=== PATIENT | male | born 1965 | race African-American/Black ===

== ENCOUNTER 2018-08-13 13:28 | Observation (INO) ==
[2018-08-13] MEDS ORDERED: Acetaminophen 325 MG Tablet PO ONE (14:07)
--- NOTE | 2018-08-13 14:24 | ED ---
HPI General Chief complaint: Seizure Stated complaint: seizure Time Seen by Provider: 08/13/18 13:56 Source: patient, family and RN notes reviewed Limitations: no limitations History of Present Illness HPI narrative: 53-year-old male presents to the emergency department with his sister at bedside for evaluation of seizures. He apparently just got discharged recently from rehab for CHF where he was receiving and underdosing of his Keppra. He is currently on Keppra 2000 mg twice daily, phenobarbital, Vimpat for his seizures. She states he has been having constant seizures for the past week. During my exam, the patient started shaking, but was alert and answers all my questions appropriately during this episode. Patient was found to have a fever in triage of 101.2. He denies any headache. No cough, congestion. He denies any abdominal pain. He reports vomiting yesterday. According to chart, patient has past medical history of seizure disorder, hypertension, CVA, NV, CHF, chronic idiopathic thrombocytopenic purpura, history of DVT. He has history of right frontal AVM and bur hole placement. He also has a history of [place] filter placement. 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 Patient is on Coumadin. Moderate severity. Onset (ago): week(s) Severity: moderate Relieving factors: none Exacerbating factors: none Associated symptoms: Reports fever/chills and nausea/vomiting Related Data Home Medications Medication Instructions Recorded Confirmed atorvastatin 10 mg PO DAILY 08/13/18 08/13/18 furosemide 40 mg PO DAILY 08/13/18 08/13/18 labetalol 200 mg PO BID 08/13/18 08/13/18 lacosamide [Vimpat] 50 mg PO BID 08/13/18 08/13/18 levetiracetam [Keppra] 2,000 mg PO BID 08/13/18 08/13/18 phenobarbital 64.8 mg PO BID 08/13/18 08/13/18 potassium chloride 08/13/18 warfarin 5 mg PO DAILY 08/13/18 08/13/18 Allergies Allergy/AdvReac Type Severity Reaction Status Date / Time monosodium glutamate Allergy Intermediate SEIZURE Unverified 05/18/17 20:42 divalproex sodium AdvReac Severe NAUSEA AND Unverified 05/18/17 20:42 VOMITING enoxaparin AdvReac Severe LOWERS WBC Unverified 05/18/17 20:42 SOUNT heparin (porcine) AdvReac Severe LOWERS WBC Unverified 05/18/17 20:42 [place] Allergy Severe STOPS Uncoded 10/31/10 22:24 BREATHING Review of Systems ROS: all other systems reviewed are negative [facility] Medical History Medical History Myocardial infarction (Acute) Seizure (Acute) Stroke (Acute) Social History Social History Substance History: No History of Abuse Second Hand Smoke Exposure: No Smoking Status: Never smoker How Often Do You Have a Drink Containing Alcohol: Never Recent Travel in [facility] within the Last 8 Weeks: No Recent Out of Country Travel within the Last 8 Weeks: No Exam Narrative Exam Narrative: GENERAL: Well-nourished, well-developed male patient, temp of 101.2 SKIN: Focused skin assessment warm/dry. HEAD: Normocephalic. Atraumatic ENT: Mucosa pink and moist. No erythema or exudates. No uvular edema. No uvular , palatal, or tonsillar deviation. Airway patent. Nasal turbinates appear normal without nasal blood, purulent drainage or septal hematoma. Bilateral tympanic membranes clear without erythema or perforation. EYES: No scleral icterus. No injection or drainage. NECK: Supple, trachea midline. No JVD or lymphadenopathy. CARDIOVASCULAR: Regular rate and rhythm without murmurs, gallops, or rubs. RESPIRATORY: Breath sounds equal bilaterally. No accessory muscle use. GASTROINTESTINAL: Abdomen soft, non-tender, nondistended. MUSCULOSKELETAL: No cyanosis, or edema. Patient has chronic left-sided deficit from previous CVA BACK: Nontender without obvious deformity. No CVA tenderness. Course Initial Documented Vital Signs Temperature 101.2 F H 08/13/18 13:31 Pulse Rate 82 08/13/18 13:31 Respiratory Rate 16 08/13/18 13:31 Blood Pressure 196/111 H 08/13/18 13:31 Pulse Oximetry 100 08/13/18 13:31 Last Documented Vital Signs Temperature 101.2 F H 08/13/18 13:31 Pulse Rate 82 08/13/18 15:45 Respiratory Rate 18 08/13/18 15:45 Blood Pressure 165/82 H 08/13/18 15:45 Pulse Oximetry 100 08/13/18 15:45 Medical Decision Making [facility] Narrative Medical decision making narrative: 53-year-old male presents to the emergency department for evaluation of seizures with history of. He is found to have fever of 1 1.2 in triage. Septic workup is initiated. During my exam, he did start sticking and telling me he was having a seizure, but answered all my questions appropriately throughout this episode. IV access obtained. EKG, CBC , CMP, lipase, BNP, CK, troponin, magnesium, lactic acid, blood cultures x2, UA , PTT, PT/INR, chest x-ray are ordered and pending. IV fluids will be held at this time due to significant CHF history. CBC shows platelets at 63. CMP shows no acute abnormality. Lipase is 57. BNP is 178. CK is 110. Troponin is 0.03. Magnesium is 2.0. Lactic acid is 1.2. PTT is 30.3. PT/INR is 12.1/1.2. UA is negative for acute infection. Chest x- ray shows no acute cardiopulmonary disease. CT of the brain shows Right frontal and parietal lobe chronic encephalomalacia. Scattered parenchymal calcifications medially of the frontal lobe and with a focal change in the interim. By report, patient has history of a previously treated AVM. Evolving posttreatment changes and a localized AVM recurrence are in the differential. If there are no contraindications, MRA without contrast and MRI of the brain with and without contrast are recommended; I don't see any other changes or acute abnormalities. No bleed. Patient will be admitted for further evaluation. Patient was given Ativan 0.5 mg IV and has been resting since. Medical Screen Exam Complete: Yes Emergency Medical Condition: Yes Differential Diagnosis Differential Diagnosis: Pneumonia versus UTI versus sepsis versus pseudoseizure versus status epilepticus Medical Records Medical records reviewed: Yes I reviewed the patient's medical records. Lab Data Result diagrams: 08/13/18 14:20 08/13/18 14:20 Lab Results 08/13/18 08/13/18 08/13/18 Range/Units 14:20 14:20 14:20 WBC 7.5 (4.0-11.0) th/mm3 RBC 3.58 L (4.50-5.90) mil/mm3 Hgb 11.6 L (13.0-17.0) gm/dL Hct 35.1 L (39.0-51.0) % MCV 97.9 (80.0-100.0) fL MCH 32.5 (27.0-34.0) pg MCHC 33.2 (32.0-36.0) % RDW 16.1 (11.6-17.2) % Plt Count 63 L (150-450) th/mm3 MPV 12.2 H (7.0-11.0) fL Prelim Diff (Auto) Slide review pending Neut % (Auto) 73.9 H (16.0-70.0) % Lymph % (Auto) 12.3 (9.0-44.0) % Anderson % (Auto) 11.9 H (0.0-8.0) % Eos % (Auto) 1.3 (0.0-4.0) % Baso % (Auto) 0.6 (0.0-2.0) % Neut # (Auto) 5.5 (1.8-7.7) th/mm3 Lymph # (Auto) 0.9 L (1.0-4.8) th/mm3 Anderson # (Auto) 0.9 (0.0-0.9) th/mm3 Eos # (Auto) 0.1 (0.0-0.4) th/mm3 Baso # (Auto) 0.0 (0.0-0.2) th/mm3 WBC Differential . Diff Scan Auto diff confirmed Differential Comment . Platelet Estimate Low L (Normal) Platelet Morphology Enlarged H (Normal) Ovalocytes 2+ H (None) PT (9.8-11.6) sec INR Ratio APTT (23.4-31.7) sec Sodium 139 (136-145) meq/L Potassium 3.6 (3.5-5.1) meq/L Chloride 100 (98-107) meq/L Carbon Dioxide 29.6 (21.0-32.0) meq/L Anion Gap 9 (5-15) meq/L BUN 14 (7-18) mg/dL Creatinine 1.29 (0.60-1.30) mg/dL Estimated GFR 70 L (>89) mL/min Random Glucose 89 (74-106) mg/dL Lactic Acid 1.2 (0.4-2.0) mmol/L Calcium 8.4 L (8.5-10.1) mg/dL Magnesium 2.0 (1.5-2.5) mg/dL Total Bilirubin 0.7 (0.2-1.0) mg/dL AST 12 L (15-37) U/L ALT 20 (12-78) U/L Alkaline Phosphatase 92 (45-117) U/L Total Creatine Kinase (39-308) U/L CK-MB (CK-2) (0.5-3.6) ng/mL Troponin I (0.02-0.05) ng/mL B-Natriuretic Peptide (0-100) pg/mL Total Protein 8.2 (6.4-8.2) g/dL Albumin 3.4 (3.4-5.0) g/dL Lipase (73-393) U/L Urine Color (Yellw/Straw) Urine Clarity (Clear) Urine pH (5.0-8.5) Ur Specific [place] (1.002-1.035) Urine Protein (Neg-Trace) mg/dL Urine Glucose (UA) (Negative) mg/dL Urine Ketones (Negative) mg/dL Urine Occult Blood (Negative) Urine Nitrate (Negative) Urine Bilirubin (Negative) Urine Urobilinogen (Less than 2) mg/dL Ur Leukocyte Esterase (Negative) Urine WBC (0-5) /hpf Ur Squamous Epith Cells (0-5) /hpf Urine Mucus (Occasional) /lpf Micro UA Comment Ur Microscopic Review Urine Culture Comments Phenobarbital (15.0-40.0) mcg/mL 08/13/18 08/13/18 08/13/18 Range/Units 14:20 14:20 14:20 WBC (4.0-11.0) th/mm3 RBC (4.50-5.90) mil/mm3 Hgb (13.0-17.0) gm/dL Hct (39.0-51.0) % MCV (80.0-100.0) fL MCH (27.0-34.0) pg MCHC (32.0-36.0) % RDW (11.6-17.2) % Plt Count (150-450) th/mm3 MPV (7.0-11.0) fL Prelim Diff (Auto) Neut % (Auto) (16.0-70.0) % Lymph % (Auto) (9.0-44.0) % Anderson % (Auto) (0.0-8.0) % Eos % (Auto) (0.0-4.0) % Baso % (Auto) (0.0-2.0) % Neut # (Auto) (1.8-7.7) th/mm3 Lymph # (Auto) (1.0-4.8) th/mm3 Anderson # (Auto) (0.0-0.9) th/mm3 Eos # (Auto) (0.0-0.4) th/mm3 Baso # (Auto) (0.0-0.2) th/mm3 WBC Differential Diff Scan Differential Comment Platelet Estimate (Normal) Platelet Morphology (Normal) Ovalocytes (None) PT 12.1 H (9.8-11.6) sec INR 1.2 Ratio APTT 30.3 (23.4-31.7) sec Sodium (136-145) meq/L Potassium (3.5-5.1) meq/L Chloride (98-107) meq/L Carbon Dioxide (21.0-32.0) meq/L Anion Gap (5-15) meq/L BUN (7-18) mg/dL Creatinine (0.60-1.30) mg/dL Estimated GFR (>89) mL/min Random Glucose (74-106) mg/dL Lactic Acid (0.4-2.0) mmol/L Calcium (8.5-10.1) mg/dL Magnesium (1.5-2.5) mg/dL Total Bilirubin (0.2-1.0) mg/dL AST (15-37) U/L ALT (12-78) U/L Alkaline Phosphatase (45-117) U/L Total Creatine Kinase 110 (39-308) U/L CK-MB (CK-2) Less than 1.0 (0.5-3.6) ng/mL Troponin I 0.03 (0.02-0.05) ng/mL B-Natriuretic Peptide (0-100) pg/mL Total Protein (6.4-8.2) g/dL Albumin (3.4-5.0) g/dL Lipase 57 L (73-393) U/L Urine Color (Yellw/Straw) Urine Clarity (Clear) Urine pH (5.0-8.5) Ur Specific [place] (1.002-1.035) Urine Protein (Neg-Trace) mg/dL Urine Glucose (UA) (Negative) mg/dL Urine Ketones (Negative) mg/dL Urine Occult Blood (Negative) Urine Nitrate (Negative) Urine Bilirubin (Negative) Urine Urobilinogen (Less than 2) mg/dL Ur Leukocyte Esterase (Negative) Urine WBC (0-5) /hpf Ur Squamous Epith Cells (0-5) /hpf Urine Mucus (Occasional) /lpf Micro UA Comment Ur Microscopic Review Urine Culture Comments Phenobarbital 27.3 (15.0-40.0) mcg/mL 08/13/18 08/13/18 Range/Units 14:20 15:50 WBC (4.0-11.0) th/mm3 RBC (4.50-5.90) mil/mm3 Hgb (13.0-17.0) gm/dL Hct (39.0-51.0) % MCV (80.0-100.0) fL MCH (27.0-34.0) pg MCHC (32.0-36.0) % RDW (11.6-17.2) % Plt Count (150-450) th/mm3 MPV (7.0-11.0) fL Prelim Diff (Auto) Neut % (Auto) (16.0-70.0) % Lymph % (Auto) (9.0-44.0) % Anderson % (Auto) (0.0-8.0) % Eos % (Auto) (0.0-4.0) % Baso % (Auto) (0.0-2.0) % Neut # (Auto) (1.8-7.7) th/mm3 Lymph # (Auto) (1.0-4.8) th/mm3 Anderson # (Auto) (0.0-0.9) th/mm3 Eos # (Auto) (0.0-0.4) th/mm3 Baso # (Auto) (0.0-0.2) th/mm3 WBC Differential Diff Scan Differential Comment Platelet Estimate (Normal) Platelet Morphology (Normal) Ovalocytes (None) PT (9.8-11.6) sec INR Ratio APTT (23.4-31.7) sec Sodium (136-145) meq/L Potassium (3.5-5.1) meq/L Chloride (98-107) meq/L Carbon Dioxide (21.0-32.0) meq/L Anion Gap (5-15) meq/L BUN (7-18) mg/dL Creatinine (0.60-1.30) mg/dL Estimated GFR (>89) mL/min Random Glucose (74-106) mg/dL Lactic Acid (0.4-2.0) mmol/L Calcium (8.5-10.1) mg/dL Magnesium (1.5-2.5) mg/dL Total Bilirubin (0.2-1.0) mg/dL AST (15-37) U/L ALT (12-78) U/L Alkaline Phosphatase (45-117) U/L Total Creatine Kinase (39-308) U/L CK-MB (CK-2) (0.5-3.6) ng/mL Troponin I (0.02-0.05) ng/mL B-Natriuretic Peptide 178 H (0-100) pg/mL Total Protein (6.4-8.2) g/dL Albumin (3.4-5.0) g/dL Lipase (73-393) U/L Urine Color Yellow (Yellw/Straw) Urine Clarity Clear (Clear) Urine pH 5.0 (5.0-8.5) Ur Specific [place] 1.023 (1.002-1.035) Urine Protein Negative (Neg-Trace) mg/dL Urine Glucose (UA) Negative (Negative) mg/dL Urine Ketones Negative (Negative) mg/dL Urine Occult Blood Negative (Negative) Urine Nitrate Negative (Negative) Urine Bilirubin Negative (Negative) Urine Urobilinogen 4 or greater (Less than 2) mg/dL Ur Leukocyte Esterase Negative (Negative) Urine WBC 1 (0-5) /hpf Ur Squamous Epith Cells <1 (0-5) /hpf Urine Mucus Few H (Occasional) /lpf Micro UA Comment Cath-culture not ind Ur Microscopic Review Not Reportable Urine Culture Comments Cath-cult not ind Phenobarbital (15.0-40.0) mcg/mL Imaging Data Radiologist's impression: Chest X-Ray 08/13/18 14:05 CONCLUSION: No acute cardiopulmonary disease demonstrated. Head CT 08/13/18 14:07 CONCLUSION: 1. Right frontal and parietal lobe chronic encephalomalacia. Scattered parenchymal calcifications medially of the frontal lobe and with a focal change in the interim. By report, patient has history of a previously treated AVM. Evolving posttreatment changes and a localized AVM recurrence are in the differential. If there are no contraindications, MRA without contrast and MRI of the brain with and without contrast are recommended. 2. I don't see any other changes or acute abnormalities. No bleed. . Discharge Plan Discharge Disposition Patient Disposition: 30 Still Patient Discharge Details Diagnosis: Epileptic seizure, Fever Physicians Team ED Provider: Desean García ED Midlevel Provider: Georgia Chacon Primary Care Provider: Jalen Arroyo V Rxs /Orders / Referrals /Forms Prescriptions: No Action furosemide 40 mg Tablet 40 mg PO DAILY RF: 0 potassium chloride 10 mEq Capsule, Extended Release RF: 0 labetalol 200 mg Tablet 200 mg PO BID RF: 0 atorvastatin 10 mg Tablet 10 mg PO DAILY RF: 0 warfarin 5 mg Tablet 5 mg PO DAILY RF: 0 phenobarbital 64.8 mg Tablet 64.8 mg PO BID RF: 0 levetiracetam [Keppra] 1,000 mg Tablet 2,000 mg PO BID RF: 0 lacosamide [Vimpat] 50 mg Tablet 50 mg PO BID RF: 0 Status ED Status: Admitted Observation Patient
[2018-08-13 15:16] LABS: Baso % (Auto) 0.6 % (0.0-2.0); Eos # (Auto) 0.1 th/mm3 (0.0-0.4); Eos % (Auto) 1.3 % (0.0-4.0); Hematocrit 35.1 % (39.0-51.0); Hemoglobin 11.6 gm/dL (13.0-17.0); Lymph # (Auto) 0.9 th/mm3 (1.0-4.8); Lymph % (Auto) 12.3 % (9.0-44.0); Mean Corpuscular HGB Conc 33.2 % (32.0-36.0); Mean Corpuscular Hemoglobin 32.5 pg (27.0-34.0); Mean Corpuscular Volume 97.9 fL (80.0-100.0); Mean Platelet Volume 12.2 fL (7.0-11.0); Mono # (Auto) 0.9 th/mm3 (0.0-0.9); Mono % (Auto) 11.9 % (0.0-8.0); Neut # (Auto) 5.5 th/mm3 (1.8-7.7); Neut % (Auto) 73.9 % (16.0-70.0); Platelet Count 63 th/mm3 (150-450); Red Blood Count 3.58 mil/mm3 (4.50-5.90); Red Cell Distribution Width 16.1 % (11.6-17.2); White Blood Count 7.5 th/mm3 (4.0-11.0)
[2018-08-13 15:25] LABS: Alanine Aminotransferase 20 U/L (12-78); Albumin 3.4 g/dL (3.4-5.0); Anion Gap 9 meq/L (5-15); Aspartate Aminotransferase 12 U/L (15-37); Blood Urea Nitrogen 14 mg/dL (7-18); Calcium 8.4 mg/dL (8.5-10.1); Carbon Dioxide 29.6 meq/L (21.0-32.0); Chloride 100 meq/L (98-107); Glomerular Filtration Rate 70 mL/min (>89); Glucose,Random 89 mg/dL (74-106); Potassium 3.6 meq/L (3.5-5.1); Sodium 139 meq/L (136-145)
[2018-08-13 15:26] LABS: Activated Partial Thrombo Time 30.3 sec (23.4-31.7); INR 1.2 Ratio; Prothrombin Time 12.1 sec (9.8-11.6)
[2018-08-13 15:27] LABS: Alkaline Phosphatase 92 U/L (45-117); Lipase 57 U/L (73-393); Total Protein 8.2 g/dL (6.4-8.2)
[2018-08-13 15:31] LABS: Creatine Kinase 110 U/L (39-308); Troponin I 0.03 ng/mL (0.02-0.05)
--- NOTE | 2018-08-13 15:48 | XR ---
EXAM DATE: 08/13/2018 3:03 PM EST AGE/SEX: 53 years / Male INDICATIONS: Seizures CLINICAL DATA: This is the patient's initial encounter. Patient reports that signs and symptoms have been present for 1 day and indicates a pain score of 0/10. MEDICAL/SURGICAL HISTORY: . Patient has focal seizures approximately every 15 minutes. None. COMPARISON: No prior exams available for comparison. FINDINGS: A single AP view of the chest demonstrates the lungs to be symmetrically aerated without evidence of mass, infiltrate or effusion. The cardiomediastinal contours are unremarkable. Osseous structures a re intact. CONCLUSION: No acute cardiopulmonary disease demonstrated. Electronically signed by: Bari Mendiola MD 08/13/2018 3:47 PM EST
[2018-08-13 15:52] LABS: Ovalocytes 2+
[2018-08-13 16:21] LABS: Bilirubin,Urine Negative (Negative); Clarity,Urine Clear (Clear); Color,Urine Yellow (Yellw/Straw); Glucose,Urine (UA) Negative (Negative); Leukocyte Esterase,Urine Negative (Negative); Mucus,Urine Few /lpf (Occasional); Nitrite,Urine Negative (Negative); Specific Gravity,Urine 1.023 (1.002-1.035); Squamous Epithelial Cell,Urine <1 /hpf (0-5); Urobilinogen,Urine 4 or Greater mg/dL (Less than 2)
--- NOTE | 2018-08-13 16:40 | ECG ---
Date Performed: 08/13/2018 Time Performed: 15:34:06 PTAGE: 53 years EKG: Sinus rhythm POSSIBLE LEFT ATRIAL ENLARGEMENT POSSIBLE RIGHT VENTRICULAR CONDUCTION DELAY LEFT ANTERIOR FASCICULA R BLOCK POSSIBLE LEFT VENTRICULAR HYPERTROPHY NONSPECIFIC T-WAVE ABNORMALITY ABNORMAL ECG No signific ant change from prior electrocardiogram. PREVIOUS TRACING : 11/01/2010 00.13 DOCTOR: Gavin Murillo Interpretating Date/Time 08/13/2018 16:38:46
--- NOTE | 2018-08-13 17:33 | CT ---
EXAM DATE: 08/13/2018 5:09 PM EST AGE/SEX: 53 years / Male INDICATIONS: Seizure. CLINICAL DATA: This is the patient's initial encounter. Patient reports that signs and symptoms have been present for 1 day and indicates a pain score of 0/10. MEDICAL/SURGICAL HISTORY: Cerebrovascular disease. Congestive heart failure. None. RADIATION DOSE: 55.01 CTDI (mGy) COMPARISON: [facility] [place], CT BRAIN W/O CONTRAST, 10/31/2010. . TECHNIQUE: CT of the head without contrast. Using automated exposure control and adjustment of the mA and/or kV according to patient size, radiation dose was kept as low as reasonably achievable to ob tain optimal diagnostic quality images. DICOM format image data is available electronically for revi ew and comparison. FINDINGS: Scattered parenchymal calcifications again noted in the right frontal lobe. There is a broad area of encephalomalacia involving the right frontal and parietal lobes. A 1.4 cm masslike calcification ante rior to the anterior horn of the right lateral ventricle is noted on series 2 image 14 and no other d efinite change. I don't see any midline shift. No intracranial hemorrhage or hematoma. No evidence of an acute ischemic event. CONCLUSION: 1. Right frontal and parietal lobe chronic encephalomalacia. Scattered parenchymal calcifications me dially of the frontal lobe and with a focal change in the interim. By report, patient has history of a previously treated AVM. Evolving posttreatment changes and a localized AVM recurrence are in the di fferential. If there are no contraindications, MRA without contrast and MRI of the brain with and wit hout contrast are recommended. 2. I don't see any other changes or acute abnormalities. No bleed. . Electronically signed by: Bari Mendiola MD 08/13/2018 5:32 PM EST
[2018-08-13] MEDS ORDERED: Bisacodyl 10 MG Supp RECTAL PRN (18:16)
[2018-08-13] MEDS ORDERED: Acetaminophen 325 MG Tablet PO PRN (18:16)
--- NOTE | 2018-08-13 18:22 | P.HPIM ---
History of Present Illness Primary Care Physician: Jalen Arroyo MD Chief Complaint: seizures History of Present Illness: This is 53-year-old male with h/o seizures presenting with recurrent seizures. Per patient's sister with some history from the patient himself, the patient was discharged from [facility] last Wednesday and upon arrivinghome started having seizures. He was in [facility] after being discharged from [facility] after admission for congestive heart failure. Per patient , he has had several episodes and has been having them daily for the past week. he denies any headache, neck stiffness, fever, chills, nausea, vomiting, shortness of breath, chest pain, urinary symptoms or diarrhea. After further investigation by the patient's sister, the rehab facility underdosed his Keppra. He is supposed to be in 4000 mg daily but they were only giving 500 mg 3 times a day. He is also on Vimpat and phenobarbital. While at the ED, it was noted that he had a fever of 101.2. He also started having seizures but during the episode, he was alert and able to answer some questions. Review of Systems All other pertinent systems were reviewed and are negative. [facility] - History History Provided By: Patient - Medical History Medical History: Medical History (Last Updated 08/13/18 @ 18:39 by Jamee Dawson MD) AVM (arteriovenous malformation) CHF (congestive heart failure) DVT (deep venous thrombosis) Torri filter in place Hypertension Myocardial infarction Seizure Stroke - Surgical History Surgical History: Surgical History (Last Updated 08/13/18 @ 18:39 by Jamee Dawson MD) History of troy hole surgery - Family History Family History: Family History (Last Updated 08/13/18 @ 18:39 by Jamee Dawson MD) Other Heart disease Hypertension - Tobacco History Second Hand Smoke Exposure: No Tobacco Use In Past 30 Days: No Smoking Status: Never smoker - Alcohol History How Often Do You Have a Drink Containing Alcohol: Never - Substance Use History Substance History: No History of Abuse - Travel History Recent Travel in the [facility] Within the Last 8 Weeks: No Recent Travel Out of the Country Within the Last 8 Weeks: No - Immunization History Tetanus Immunization: Unsure Medications and Allergies Active Medications: Active Medications Acetaminophen (Tylenol) 650 mg PO Q4H PRN PRN Reason: Temp > 100.4 Al Hydroxide/Mg Hydroxide (Milk Of Theresa Summers) 30 ml PO Q12H PRN PRN Reason: Mild Constipation Bisacodyl (Dulcolax Supp) 10 mg RECTAL DAILY PRN PRN Reason: SEVERE CONSITIPATION Enoxaparin Sodium (Lovenox Inj) 30 mg SQ Q24H CHAVO Ondansetron HCl (Zofran Inj) 4 mg IV.PUSH Q6H PRN PRN Reason: NAUSEA OR VOMITING Sennosides (Senokot) 17.2 mg PO Q12H PRN PRN Reason: Moderate Constipation Allergies Allergy/AdvReac Type Severity Reaction Status Date / Time monosodium glutamate Allergy Intermediate SEIZURE Unverified 05/18/17 20:42 divalproex sodium AdvReac Severe NAUSEA AND Unverified 05/18/17 20:42 VOMITING enoxaparin AdvReac Severe LOWERS WBC Unverified 05/18/17 20:42 SOUNT heparin (porcine) AdvReac Severe LOWERS WBC Unverified 05/18/17 20:42 SOUNT BEER Allergy Severe STOPS Uncoded 10/31/10 22:24 BREATHING Home Medications Medication Instructions Recorded Confirmed Type atorvastatin 10 mg PO DAILY 08/13/18 08/13/18 History furosemide 40 mg PO DAILY 08/13/18 08/13/18 History labetalol 200 mg PO BID 08/13/18 08/13/18 History lacosamide [Vimpat] 50 mg PO BID 08/13/18 08/13/18 History levetiracetam [Keppra] 2,000 mg PO BID 08/13/18 08/13/18 History phenobarbital 64.8 mg PO BID 08/13/18 08/13/18 History potassium chloride 08/13/18 History warfarin 5 mg PO DAILY 08/13/18 08/13/18 History Exam Vital signs: Vital Signs 08/13/18 13:31 08/13/18 14:47 08/13/18 14:50 Temperature 101.2 F H Pulse Rate 82 83 Respiratory Rate 16 18 Blood Pressure 196/111 H 213/84 H Pulse Oximetry 100 100 100 08/13/18 15:45 Temperature Pulse Rate 82 Respiratory Rate 18 Blood Pressure 165/82 H Pulse Oximetry 100 Intake & Output 08/12/18 08/13/18 08/13/18 18:59 06:59 18:59 Weight 72.575 kg Narrative: GENERAL: Not in acute distress, well-nourished. HEAD: Atraumatic. Normocephalic. EYES: PERRL, full EOMs, no jaundice, nonicteric, pink conjunctivae without injection, moist mucosa ENT: Nose without bleeding, purulent drainage. Airway patent. NECK: Trachea midline, no mass, no obvious thyromegaly. CARDIOVASCULAR: Regular rate and irregular rhythm without murmurs, gallops, or rubs. 3/6 systolic murmur. RESPIRATORY: Breath sounds equal, occasional crackles on the right base. GASTROINTESTINAL: Abdomen soft, normal bowel sounds, non-tender, nondistended. No hepato-splenomegaly or palpable mass. No guarding. LEON and exam deferred. MUSCULOSKELETAL: Extremities without clubbing, cyanosis, or edema. NEUROLOGICAL: Awake, alert, oriented 3. No obvious cranial nerve deficits. Left upper and lower extremities, 3-4/5, right upper and lower extremities 5/5. Fluent speech. Supple neck, negative Brudzinski, negative Kernig's. Results - Labs CBC & Chem 7: 08/13/18 14:20 08/13/18 14:20 Labs: Short CBC 08/13/18 Range/Units 14:20 WBC 7.5 (4.0-11.0) th/mm3 Hgb 11.6 L (13.0-17.0) gm/dL Hct 35.1 L (39.0-51.0) % Plt Count 63 L (150-450) th/mm3 BMP 08/13/18 14:20 Sodium 139 Potassium 3.6 Chloride 100 Carbon Dioxide 29.6 BUN 14 Creatinine 1.29 Calcium 8.4 L Cardiac Enzymes 08/13/18 Range/Units 14:20 Total Creatine Kinase 110 (39-308) U/L CK-MB (CK-2) Less than 1.0 (0.5-3.6) ng/mL Troponin I 0.03 (0.02-0.05) ng/mL Liver Function 08/13/18 Range/Units 14:20 Total Bilirubin 0.7 (0.2-1.0) mg/dL AST 12 L (15-37) U/L ALT 20 (12-78) U/L Alkaline Phosphatase 92 (45-117) U/L Albumin 3.4 (3.4-5.0) g/dL Urine 08/13/18 Range/Units 15:50 Urine Color Yellow (Yellw/Straw) Urine Clarity Clear (Clear) Urine pH 5.0 (5.0-8.5) Ur Specific [place] 1.023 (1.002-1.035) Urine Protein Negative (Neg-Trace) mg/dL Urine Glucose (UA) Negative (Negative) mg/dL - Imaging Impressions Chest X-Ray 08/13/18 14:05 CONCLUSION: No acute cardiopulmonary disease demonstrated. Head CT 08/13/18 14:07 CONCLUSION: 1. Right frontal and parietal lobe chronic encephalomalacia. Scattered parenchymal calcifications medially of the frontal lobe and with a focal change in the interim. By report, patient has history of a previously treated AVM. Evolving posttreatment changes and a localized AVM recurrence are in the differential. If there are no contraindications, MRA without contrast and MRI of the brain with and without contrast are recommended. 2. I don't see any other changes or acute abnormalities. No bleed. . Caprini VTE Risk Assessment Caprini VTE Risk Assessment: Moderate/High Risk (score >= 2) Caprini Risk Assessment Model: Point Value = 1 Point Value = 2 Point Value = 3 Point Value = 5 Age 41-60 Minor surgery BMI > 25 kg/m2 Swollen legs Varicose veins or History of unexplained or recurrent spontaneous Oral contraceptives or hormone replacement Sepsis (< 1 month) Serious lung disease, including pneumonia (< 1 month) Abnormal pulmonary function Acute myocardial infarction Congestive heart failure (< 1 month) History of inflammatory bowel disease Medical patient at bed rest Age 61-74 Arthroscopic surgery Major open surgery (> 45 min) Laparoscopic surgery (> 45 min) Malignancy Confined to bed (> 72 hours) Immobilizing plaster cast Central venous access Age >= 75 History of VTE Family history of VTE Factor V Leiden Prothrombin [id number] Lupus anticoagulant Anticardiolipin antibodies Elevated serum homocysteine Heparin-induced thrombocytopenia Other congenital or acquired thrombophilia Stroke (< 1 month) Elective arthroplasty Hip, pelvis, or leg fracture Acute spinal cord injury (< 1 month) Prophylaxis Regimen: Total Risk Factor Score Risk Level Prophylaxis Regimen 0-1 Low Early ambulation 2 Moderate Order ONE of the following: *Sequential Compression Device (SCD) *Heparin 5000 units SQ BID 3-4 Higher Order ONE of the following medications: *Heparin 5000 units SQ TID *Enoxaparin/Lovenox 40 mg SQ daily (WT < 150 kg, CrCl > 30 mL/min) *Enoxaparin/Lovenox 30 mg SQ daily (WT < 150 kg, CrCl > 10-29 mL/min) *Enoxaparin/Lovenox 30 mg SQ BID (WT < 150 kg, CrCl > 30 mL/min) AND/OR *Sequential Compression Device (SCD) 5 or more Highest Order ONE of the following medications: *Heparin 5000 units SQ TID (Preferred with Epidurals) *Enoxaparin/Lovenox 40 mg SQ daily (WT < 150 kg, CrCl > 30 mL/min) *Enoxaparin/Lovenox 30 mg SQ daily (WT < 150 kg, CrCl > 10-29 mL/min) *Enoxaparin/Lovenox 30 mg SQ BID (WT < 150 kg, CrCl > 30 mL/min) AND *Sequential Compression Device (SCD) Assessment and Plan - Plan This is a 53-year-old male with history of seizures, CHF, DVT, presenting to the emergency department for seizures Psychogenic versus breakthrough seizure secondary to under dosing-loaded with Keppra intravenously and then resume home dose of 2000 mg twice a day. Consult neurology, check EEG. No meningeal signs, denies any headache, no leukocytosis. Head CT is unremarkable other than right frontal and parietal lobe chronic encephalomalacia from previous strokes. It also showed the previously treated AVM. Will also restart Vimpat and phenobarbital. Phenobarbital level 27.3. Check Keppra level. Ativan as needed Fever-unknown reason, No leukocytosis, no source of infection, denies any cough, urinary symptoms or diarrhea. Chest x-ray and urinalysis unremarkable. Check blood culture. History of DVT-there is 1.2, restart Coumadin History of CHF-presently on room air, not in distress, not in exacerbation, chest x-ray is unremarkable, continue Lasix per home dose, labetalol. Recheck BMP in the morning. DVT prophylaxis: On Coumadin.
[2018-08-13] MEDS ORDERED: levETIRAcetam 1000mg/100mL Inj 100 ML IV.SIG ONE (18:45)
[2018-08-13] MEDS: Enoxaparin Inj 30 MG/0.3 ML Syringe SQ SCH (20:18)
[2018-08-13] MEDS ORDERED: Lacosamide 50 MG Tablet PO SCH (21:00)
[2018-08-13] MEDS: levETIRAcetam 500 MG Tablet PO SCH (22:57)
[2018-08-13] MEDS: Labetalol 200 MG Tablet PO SCH (23:16)
[2018-08-14] MEDS ORDERED: Lacosamide Inj 50 MG in Sodium Chlor 0.9% Inj 100 ML IV.SIG ONE (03:00)
[2018-08-14 05:33] LABS: INR 1.3 Ratio; Prothrombin Time 13.5 sec (9.8-11.6)
[2018-08-14 05:37] LABS: Baso # (Auto) 0.1 th/mm3 (0.0-0.2); Baso % (Auto) 0.7 % (0.0-2.0); Eos # (Auto) 0.2 th/mm3 (0.0-0.4); Eos % (Auto) 3.5 % (0.0-4.0); Hematocrit 33.5 % (39.0-51.0); Hemoglobin 10.9 gm/dL (13.0-17.0); Lymph # (Auto) 1.4 th/mm3 (1.0-4.8); Lymph % (Auto) 20.3 % (9.0-44.0); Mean Corpuscular HGB Conc 32.6 % (32.0-36.0); Mean Corpuscular Hemoglobin 32.5 pg (27.0-34.0); Mean Corpuscular Volume 99.5 fL (80.0-100.0); Mean Platelet Volume 13.1 fL (7.0-11.0); Mono # (Auto) 0.8 th/mm3 (0.0-0.9); Mono % (Auto) 11.4 % (0.0-8.0); Neut # (Auto) 4.3 th/mm3 (1.8-7.7); Neut % (Auto) 64.1 % (16.0-70.0); Platelet Count 53 th/mm3 (150-450); Red Blood Count 3.37 mil/mm3 (4.50-5.90); Red Cell Distribution Width 16.2 % (11.6-17.2); White Blood Count 6.8 th/mm3 (4.0-11.0)
[2018-08-14 05:47] LABS: Carbon Dioxide 28.7 meq/L (21.0-32.0); Potassium 3.3 meq/L (3.5-5.1)
[2018-08-14 07:47] LABS: Ovalocytes 1+
[2018-08-14] MEDS: Lacosamide 50 MG Tablet PO SCH ×2 (09:09→20:58)
[2018-08-14] MEDS: Labetalol 200 MG Tablet PO SCH ×2 (09:09→20:57)
[2018-08-14] MEDS: Furosemide 40 MG Tablet PO SCH (09:09)
[2018-08-14] MEDS: levETIRAcetam 500 MG Tablet PO SCH ×2 (09:10→20:57)
--- NOTE | 2018-08-14 11:20 | P.PNIM ---
Subjective Interval history: No breakthrough seizures in the last 24 hours. Potassium low this morning. Ambulation evaluation needed. Physical Exam Vital signs: Vital Signs 08/13/18 13:31 08/13/18 14:47 08/13/18 14:50 Temperature 101.2 F H Pulse Rate 82 83 Respiratory Rate 16 18 Blood Pressure 196/111 H 213/84 H Pulse Oximetry 100 100 100 08/13/18 15:45 08/13/18 19:34 08/13/18 23:06 Temperature 98.2 F Pulse Rate 82 69 74 Respiratory Rate 18 18 20 Blood Pressure 165/82 H 152/83 H 161/100 H Pulse Oximetry 100 100 08/13/18 23:13 08/14/18 00:00 08/14/18 00:11 Temperature 98.5 F Pulse Rate 69 69 Respiratory Rate 26 H 27 H Blood Pressure 148/94 H 152/90 H 146/87 H Pulse Oximetry 98 98 08/14/18 01:00 08/14/18 01:11 08/14/18 02:00 Temperature Pulse Rate 65 66 61 Respiratory Rate 20 19 18 Blood Pressure 143/83 H 149/90 H Pulse Oximetry 99 100 100 08/14/18 03:00 08/14/18 04:00 08/14/18 05:00 Temperature 98.4 F Pulse Rate 69 62 60 Respiratory Rate 20 17 20 Blood Pressure 136/80 146/84 H 131/75 Pulse Oximetry 100 100 100 08/14/18 06:00 Temperature Pulse Rate 62 Respiratory Rate 14 Blood Pressure 133/81 Pulse Oximetry 100 Intake & Output 08/13/18 08/14/18 08/14/18 18:59 06:59 18:59 Intake Total / Output Total 300 / 300 Balance -95 / -95 Weight 72.575 kg 85.7 kg Intake: IV Vimpat Inj 50 MG In NS Inj 100 105 / 105 ML @ 105 mls/hr IV.SIG ONCE ONE Rx#:[id number] Keppra 1000 mg/100 mL Premix 100 / 100 100 ML @ 400 mls/hr IV.SIG ONCE ONE Rx#:[id number] Output: Urine Amount (Catheter) 300 / 300 Condom 300 / 300 Other: Date of Last Bowel Movement 08/13/18 Weight On Admission 72.575 kg Narrative: GENERAL: NAD, A&Ox3 HEAD: Normocephalic. NECK: Supple, trachea midline. No lymphadenopathy. EYES: No scleral icterus. No injection or drainage. CARDIOVASCULAR: Regular rate and rhythm without murmurs, gallops, or rubs. RESPIRATORY: Breath sounds equal bilaterally. No accessory muscle use. GASTROINTESTINAL: Abdomen soft, non-tender, nondistended. MUSCULOSKELETAL: No cyanosis, or edema. SKIN: Warm and dry. NEURO: No focal neurological deficits. - Urinary Catheter Management Straight Cath placed during this visit: no Reason for continuing: Not indwelling catheter Condom Cath placed during this visit: no Results - Labs CBC & Chem 7: 08/14/18 04:18 08/14/18 04:18 Laboratory Results - last 24 hr 08/13/18 08/13/18 08/13/18 14:20 14:20 14:20 WBC 7.5 RBC 3.58 L Hgb 11.6 L Hct 35.1 L MCV 97.9 MCH 32.5 MCHC 33.2 RDW 16.1 Plt Count 63 L MPV 12.2 H Prelim Diff (Auto) Slide review pending Neut % (Auto) 73.9 H Lymph % (Auto) 12.3 [place] % (Auto) 11.9 H Eos % (Auto) 1.3 Baso % (Auto) 0.6 Neut # (Auto) 5.5 Lymph # (Auto) 0.9 L [place] # (Auto) 0.9 Eos # (Auto) 0.1 Baso # (Auto) 0.0 WBC Differential . Diff Scan Auto diff confirmed Differential Comment . Platelet Estimate Low L Platelet Morphology Enlarged H Ovalocytes 2+ H PT INR APTT Sodium 139 Potassium 3.6 Chloride 100 Carbon Dioxide 29.6 Anion Gap 9 BUN 14 Creatinine 1.29 Estimated GFR 70 L Random Glucose 89 Lactic Acid 1.2 Calcium 8.4 L Magnesium 2.0 Total Bilirubin 0.7 AST 12 L ALT 20 Alkaline Phosphatase 92 Total Creatine Kinase CK-MB (CK-2) Troponin I B-Natriuretic Peptide Total Protein 8.2 Albumin 3.4 Lipase Urine Color Urine Clarity Urine pH Ur Specific [place] Urine Protein Urine Glucose (UA) Urine Ketones Urine Occult Blood Urine Nitrate Urine Bilirubin Urine Urobilinogen Ur Leukocyte Esterase Urine WBC Ur Squamous Epith Cells Urine Mucus Micro UA Comment Ur Microscopic Review Urine Culture Comments Nasal Screen MRSA (PCR) Phenobarbital 08/13/18 08/13/18 08/13/18 14:20 14:20 14:20 WBC RBC Hgb Hct MCV MCH MCHC RDW Plt Count MPV Prelim Diff (Auto) Neut % (Auto) Lymph % (Auto) [place] % (Auto) Eos % (Auto) Baso % (Auto) Neut # (Auto) Lymph # (Auto) [place] # (Auto) Eos # (Auto) Baso # (Auto) WBC Differential Diff Scan Differential Comment Platelet Estimate Platelet Morphology Ovalocytes PT 12.1 H INR 1.2 APTT 30.3 Sodium Potassium Chloride Carbon Dioxide Anion Gap BUN Creatinine Estimated GFR Random Glucose Lactic Acid Calcium Magnesium Total Bilirubin AST ALT Alkaline Phosphatase Total Creatine Kinase 110 CK-MB (CK-2) Less than 1.0 Troponin I 0.03 B-Natriuretic Peptide Total Protein Albumin Lipase 57 L Urine Color Urine Clarity Urine pH Ur Specific [place] Urine Protein Urine Glucose (UA) Urine Ketones Urine Occult Blood Urine Nitrate Urine Bilirubin Urine Urobilinogen Ur Leukocyte Esterase Urine WBC Ur Squamous Epith Cells Urine Mucus Micro UA Comment Ur Microscopic Review Urine Culture Comments Nasal Screen MRSA (PCR) Phenobarbital 27.3 08/13/18 08/13/18 08/14/18 14:20 15:50 00:00 WBC RBC Hgb Hct MCV MCH MCHC RDW Plt Count MPV Prelim Diff (Auto) Neut % (Auto) Lymph % (Auto) [place] % (Auto) Eos % (Auto) Baso % (Auto) Neut # (Auto) Lymph # (Auto) [place] # (Auto) Eos # (Auto) Baso # (Auto) WBC Differential Diff Scan Differential Comment Platelet Estimate Platelet Morphology Ovalocytes PT INR APTT Sodium Potassium Chloride Carbon Dioxide Anion Gap BUN Creatinine Estimated GFR Random Glucose Lactic Acid Calcium Magnesium Total Bilirubin AST ALT Alkaline Phosphatase Total Creatine Kinase CK-MB (CK-2) Troponin I B-Natriuretic Peptide 178 H Total Protein Albumin Lipase Urine Color Yellow Urine Clarity Clear Urine pH 5.0 Ur Specific [place] 1.023 Urine Protein Negative Urine Glucose (UA) Negative Urine Ketones Negative Urine Occult Blood Negative Urine Nitrate Negative Urine Bilirubin Negative Urine Urobilinogen 4 or greater Ur Leukocyte Esterase Negative Urine WBC 1 Ur Squamous Epith Cells <1 Urine Mucus Few H Micro UA Comment Cath-culture not ind Ur Microscopic Review Not Reportable Urine Culture Comments Cath-cult not ind Nasal Screen MRSA (PCR) Mrsa detected Phenobarbital 11/11/18 11/11/18 11/11/18 04:18 04:18 04:18 WBC 6.8 RBC 3.37 L Hgb 10.9 L Hct 33.5 L MCV 99.5 MCH 32.5 MCHC 32.6 RDW 16.2 Plt Count 53 L MPV 13.1 H Prelim Diff (Auto) Slide review pending Neut % (Auto) 64.1 Lymph % (Auto) 20.3 [place] % (Auto) 11.4 H Eos % (Auto) 3.5 Baso % (Auto) 0.7 Neut # (Auto) 4.3 Lymph # (Auto) 1.4 [place] # (Auto) 0.8 Eos # (Auto) 0.2 Baso # (Auto) 0.1 WBC Differential . Diff Scan Auto diff confirmed Differential Comment . Platelet Estimate Low L Platelet Morphology Enlarged H Ovalocytes 1+ H PT 13.5 H INR 1.3 APTT Sodium 141 Potassium 3.3 L Chloride 103 Carbon Dioxide 28.7 Anion Gap 9 BUN 13 Creatinine 1.18 Estimated GFR 78 L Random Glucose 71 L Lactic Acid Calcium 8.0 L Magnesium Total Bilirubin AST ALT Alkaline Phosphatase Total Creatine Kinase CK-MB (CK-2) Troponin I B-Natriuretic Peptide Total Protein Albumin Lipase Urine Color Urine Clarity Urine pH Ur Specific [place] Urine Protein Urine Glucose (UA) Urine Ketones Urine Occult Blood Urine Nitrate Urine Bilirubin Urine Urobilinogen Ur Leukocyte Esterase Urine WBC Ur Squamous Epith Cells Urine Mucus Micro UA Comment Ur Microscopic Review Urine Culture Comments Nasal Screen MRSA (PCR) Phenobarbital Microbiology 08/13/18 14:20 Blood - Peripheral Aerobic Blood Culture - Preliminary No growth in 1 day 08/13/18 14:20 Blood - Peripheral Anaerobic Blood Culture - Preliminary No growth in 1 day 08/13/18 14:15 Blood - Peripheral Aerobic Blood Culture - Preliminary No growth in 1 day 08/13/18 14:15 Blood - Peripheral Anaerobic Blood Culture - Preliminary No growth in 1 day 08/13/18 15:50 Nasal Wash Influenza Types A,B Antigen - Final Negative for FLU A and B antigen Infection due to influenza A or B cannot be ruled out since the antigen present in the sample may be below the detection limit of the test. - Imaging Impressions Chest X-Ray 08/13/18 14:05 CONCLUSION: No acute cardiopulmonary disease demonstrated. Head CT 08/13/18 14:07 CONCLUSION: 1. Right frontal and parietal lobe chronic encephalomalacia. Scattered parenchymal calcifications medially of the frontal lobe and with a focal change in the interim. By report, patient has history of a previously treated AVM. Evolving posttreatment changes and a localized AVM recurrence are in the differential. If there are no contraindications, MRA without contrast and MRI of the brain with and without contrast are recommended. 2. I don't see any other changes or acute abnormalities. No bleed. . Assessment and Plan - Plan 53-year-old male with history of seizures, CHF, DVT, presenting to the emergency department for seizures Breakthrough seizure Continue Keppra Continue Vimpat Continue phenobarbital No further seizure activity as of this morning Generalized weakness Start physical therapy Follow for functionality at discharge History of CHF No exacerbation Follow clinically Continue baseline treatments Fever of unknown origin May be seizure related No recurrence Follow for recurrence History of DVT DVT prophylaxis Continue Coumadin Follow INR
[2018-08-14] MEDS: Enoxaparin Inj 30 MG/0.3 ML Syringe SQ SCH (18:00)
[2018-08-15] MEDS ORDERED: Chlorhexidine Gluconate 2% 1 Pack (2 Cloths) TOPICAL PRN (04:00)
[2018-08-15] MEDS: Chlorhexidine Gluconate 2% 1 Pack (2 Cloths) TOPICAL SCH (04:35)
[2018-08-15 07:05] LABS: Baso % (Auto) 0.8 % (0.0-2.0); Eos # (Auto) 0.4 th/mm3 (0.0-0.4); Eos % (Auto) 8.9 % (0.0-4.0); Hematocrit 31.5 % (39.0-51.0); Hemoglobin 10.3 gm/dL (13.0-17.0); Lymph # (Auto) 1.5 th/mm3 (1.0-4.8); Lymph % (Auto) 30.5 % (9.0-44.0); Mean Corpuscular HGB Conc 32.8 % (32.0-36.0); Mean Corpuscular Hemoglobin 32.2 pg (27.0-34.0); Mean Corpuscular Volume 98.4 fL (80.0-100.0); Mean Platelet Volume 11.7 fL (7.0-11.0); Mono # (Auto) 0.7 th/mm3 (0.0-0.9); Mono % (Auto) 13.8 % (0.0-8.0); Neut # (Auto) 2.2 th/mm3 (1.8-7.7); Red Cell Distribution Width 16.2 % (11.6-17.2); White Blood Count 4.9 th/mm3 (4.0-11.0)
[2018-08-15 07:07] LABS: INR 1.4 Ratio
[2018-08-15 07:31] LABS: Alanine Aminotransferase 16 U/L (12-78); Albumin 2.7 g/dL (3.4-5.0); Alkaline Phosphatase 77 U/L (45-117); Anion Gap 6 meq/L (5-15); Aspartate Aminotransferase 13 U/L (15-37); Blood Urea Nitrogen 15 mg/dL (7-18); Calcium 7.9 mg/dL (8.5-10.1); Carbon Dioxide 30.6 meq/L (21.0-32.0); Chloride 104 meq/L (98-107); Glomerular Filtration Rate 81 mL/min (>89); Glucose,Random 83 mg/dL (74-106); Potassium 3.4 meq/L (3.5-5.1); Sodium 141 meq/L (136-145); Total Protein 6.7 g/dL (6.4-8.2)
[2018-08-15] MEDS ORDERED: Sodium Chloride 0.9% 2 ML Flush PRN IV.FLUSH (08:19)
[2018-08-15 08:35] LABS: Acanthocytes Occ; Ovalocytes 1+
[2018-08-15] MEDS: Lacosamide 50 MG Tablet PO SCH ×2 (09:11→21:17)
[2018-08-15] MEDS: Labetalol 200 MG Tablet PO SCH ×2 (09:11→21:17)
[2018-08-15] MEDS: levETIRAcetam 500 MG Tablet PO SCH ×2 (09:11→21:15)
[2018-08-15] MEDS: Furosemide 40 MG Tablet PO SCH (09:11)
[2018-08-15] MEDS: Sodium Chloride 0.9% 2 ML Flush BID IV.FLUSH SCH ×2 (09:11→22:02)
--- NOTE | 2018-08-15 11:22 | P.PNIM ---
Subjective Interval history: no new complaints today. Physical Exam Vital signs: Last Vital Signs Temp 98.0 F 08/15/18 08:00 Pulse 66 08/15/18 08:00 Resp 18 08/15/18 08:00 BP 139/99 H 08/15/18 08:00 Pulse Ox 99 08/15/18 08:00 Intake & Output 08/13/18 08/14/18 08/15/18 08/16/18 06:59 06:59 06:59 06:59 Intake Total 205 / 205 1000 / 1000 Output Total 300 / 300 800 / 800 Balance -95 / -95 200 / 200 Weight 85.7 kg 86.3 kg Narrative: GENERAL: NAD, A&Ox3 HEAD: Normocephalic. NECK: Supple, trachea midline. No lymphadenopathy. EYES: No scleral icterus. No injection or drainage. CARDIOVASCULAR: Regular rate and rhythm without murmurs, gallops, or rubs. RESPIRATORY: Breath sounds equal bilaterally. No accessory muscle use. GASTROINTESTINAL: Abdomen soft, non-tender, nondistended. MUSCULOSKELETAL: No cyanosis, or edema. SKIN: Warm and dry. NEURO: No focal neurological deficits. Urinary Catheter Management Straight: Cath placed during this visit: no Condom: Cath placed during this visit: no Results Labs CBC & Chem 7: 08/15/18 06:08 08/15/18 06:08 Labs: Microbiology 08/13/18 14:20 Blood - Peripheral Aerobic Blood Culture - Preliminary No growth in 2 days 08/13/18 14:20 Blood - Peripheral Anaerobic Blood Culture - Preliminary No growth in 2 days 08/13/18 14:15 Blood - Peripheral Aerobic Blood Culture - Preliminary No growth in 2 days 08/13/18 14:15 Blood - Peripheral Anaerobic Blood Culture - Preliminary No growth in 2 days Assessment and Plan Plan 53-year-old male with history of seizures, CHF, DVT, presented to the emergency department for seizures Breakthrough seizure: no reported seizure activity inhouse so far. Continue Keppra,Vimpat, phenobarbital. neurology consult ordered on admission pending. Fever -resolved. unclear etiology,may have been related to seizure. infectious w /up negative. History of DVT: INR subtherapeutic-1.4. reports being on Coumadin 5mg. will adjust dose to 7.5mg mwf and 5 mg the rest of the days.check INR daily Generalized weakness PT/OT. Follow for functionality at discharge History of CHF--not in exacerbation Continue baseline treatments Progress Note: Quality VTE Deep Vein Thrombosis/Pulmonary Embolism Present on Admission: No
--- NOTE | 2018-08-15 19:42 | MG ---
cc: Shan Mejia MD, PhD TEST NUMBER: [id number] TECHNIQUE: This is a 17-channel EEG. DESCRIPTION: The background rhythm reveals a symmetrical alpha rhythm, frequency 8 Hz. There is some slowing in the theta range as well during the tracing. No lateralizing features identified. Photic results in a modest driving response. INTERPRETATION: Overall normal-appearing electroencephalogram. There is some slowing, but I would suspect this is probably related to drowsiness. No definite epileptiform features are identified. Shan Mejia MD, PhD STACEY/caterina , 07:19 PM , 07:25 PM
[2018-08-16] MEDS: Chlorhexidine Gluconate 2% 1 Pack (2 Cloths) TOPICAL SCH (03:36)
[2018-08-16 05:29] LABS: INR 1.2 Ratio
--- NOTE | 2018-08-16 08:56 | P.DCO ---
- Diagnosis (1) Epileptic seizure Status: Acute - Physical Therapy Order: Evaluate and treat - Home Health Nursing Order: Medical education, Signs/symptoms of disease process, Medication education-adverse effect, Nursing assessment with vital signs - Case Management Consult Yes - Certification I have seen patient Maximo Obrien on 08/16/18. My clinical findings support the need for the requested home health care services because: Limited mobility due to disease progression I certify that my clinical findings support that this patient is homebound because: Post-op weakness, Unsteady gait/balance (1) Epileptic seizure Qualifiers: Epilepsy type: unspecified Intractability: not intractable Status epilepticus: without status epilepticus Qualified Code(s): G40.909 - Epilepsy, unspecified, not intractable, without status epilepticus
--- NOTE | 2018-08-16 08:56 | P.DS ---
Date of admission: 08/13/18 18:12 Primary care physician: Jalen Arroyo MD Brief History from admission: This is 53-year-old male with h/o seizures presenting with recurrent seizures. Per patient's sister with some history from the patient himself, the patient was discharged from [facility] last Wednesday and upon arrivinghome started having seizures. He was in [facility] after being discharged from [facility] after admission for congestive heart failure. Per patient , he has had several episodes and has been having them daily for the past week. he denies any headache, neck stiffness, fever, chills, nausea, vomiting, shortness of breath, chest pain, urinary symptoms or diarrhea. After further investigation by the patient's sister, the rehab facility underdosed his Keppra. He is supposed to be in 4000 mg daily but they were only giving 500 mg 3 times a day. He is also on Vimpat and phenobarbital. While at the ED, it was noted that he had a fever of 101.2. He also started having seizures but during the episode, he was alert and able to answer some questions. DS: Diagnosis - Discharge Diagnosis (1) Epileptic seizure Status: Acute DS: Summary Hospital Course: 53-year-old male with history of seizures, CHF, DVT, presented to the emergency department for seizures Breakthrough seizure:no reported seizure activity inhouse so far. Patient reports he was not given the right dose of his keppra and was given a lesser dose. Says he is compliant with meds. Says he improved at rehab and was plan to go home. EEG reviewed no seizures cleared by neuro for DC Continue Keppra,Vimpat, phenobarbital. neurology consulted appreciate recs Fever -resolved. unclear etiology,may have been related to seizure. infectious w /up negative. History of DVT: INR subtherapeutic-1.4. reports being on Coumadin 5mg. will adjust dose to 7.5mg mwf and 5 mg the rest of the days.check INR daily Generalized weakness PT/OT. Follow for functionality at discharge History of CHF--not in exacerbation Improved, no seizures. EEG normal. Cleared by neuro. DC home in stable condition to follow up as oP with PCP and consultants. - Time Spent with Patient Total time spent providing and/or coordinating discharge services: Greater than 30 minutes - Quality: VTE Deep Vein Thrombosis/Pulmonary Embolism Present on Admission: No Exam Vital signs: Vital Signs 08/15/18 12:00 08/15/18 16:00 08/15/18 18:14 Temperature 98.5 F 98.2 F Pulse Rate 73 72 82 Respiratory Rate 18 18 Blood Pressure 159/105 H 142/92 H Pulse Oximetry 98 100 08/15/18 20:00 08/16/18 00:00 08/16/18 04:00 Temperature 98.6 F 99.1 F 99.4 F Pulse Rate 79 79 77 Respiratory Rate 16 16 16 Blood Pressure 162/108 H 125/79 158/98 H Pulse Oximetry 99 99 99 08/16/18 06:00 Temperature Pulse Rate 75 Respiratory Rate Blood Pressure Pulse Oximetry Intake & Output 08/15/18 08/16/18 08/16/18 18:59 06:59 18:59 Intake Total 500 / 500 720 / 720 Balance 500 / 500 720 / 720 Weight 87.6 kg Intake: Oral 500 / 500 720 / 720 Other: Post Void Residual 1,000 # Voids 3 # Incontinent Voids 3 # Urine Diapers 3 Date of Last Bowel Movement 08/15/18 08/15/18 Narrative: GENERAL: Pleasant 53 yo male, in NAD, A&Ox3 CARDIOVASCULAR: Regular rate and rhythm without murmurs, gallops, or rubs. RESPIRATORY: Breath sounds equal bilaterally. No accessory muscle use. GASTROINTESTINAL: Abdomen soft, non-tender, nondistended. MUSCULOSKELETAL: No cyanosis, or edema. SKIN: Warm and dry. NEURO: No focal neurological deficits Results Procedures completed during hospitalization: none Labs on day of discharge: Labs from last 24 hours 08/16/18 08/16/18 03:57 03:57 PT 12.0 H INR 1.2 Potassium 3.8 Preliminary micro results at discharge 08/13/18 14:20 Aerobic Blood Culture - Preliminary Blood - Peripheral No growth in 2 days Anaerobic Blood Culture - Preliminary No growth in 2 days 08/13/18 14:15 Aerobic Blood Culture - Preliminary Blood - Peripheral No growth in 2 days Anaerobic Blood Culture - Preliminary No growth in 2 days - Impressions ITS Impressions Chest X-Ray 08/13/18 14:05 CONCLUSION: No acute cardiopulmonary disease demonstrated. Head CT 08/13/18 14:07 CONCLUSION: 1. Right frontal and parietal lobe chronic encephalomalacia. Scattered parenchymal calcifications medially of the frontal lobe and with a focal change in the interim. By report, patient has history of a previously treated AVM. Evolving posttreatment changes and a localized AVM recurrence are in the differential. If there are no contraindications, MRA without contrast and MRI of the brain with and without contrast are recommended. 2. I don't see any other changes or acute abnormalities. No bleed. . Discharge Plan - Discharge Disposition Patient Disposition: /Home Health Service - Discharge Condition Condition: Stable - Discharge Order Discharge Orders: Discharge Order (Routine); Ordered 08/16/18 Ordered By: Penelope Kolb - Discharge Details Anticipated Discharge Date: 08/16/18 - Physicians Team Primary Care Provider: Jalen Arroyo V Attending Provider: Penelope Kolb Other Providers: Shan Mejia MD, PhD ; Charlotte Porter
[2018-08-16] MEDS: Furosemide 40 MG Tablet PO SCH (09:07)
[2018-08-16] MEDS: Lacosamide 50 MG Tablet PO SCH (09:07)
[2018-08-16] MEDS: Labetalol 200 MG Tablet PO SCH (09:07)
[2018-08-16] MEDS: levETIRAcetam 500 MG Tablet PO SCH (09:07)
[2018-08-16] MEDS: Sodium Chloride 0.9% 2 ML Flush BID IV.FLUSH SCH (09:08)
[2018-08-16 12:33] VITALS: O2SAT 100
--- NOTE | 2018-08-16 14:09 | MB ---
cc: Shan Mejia MD, PhD DATE: 08/16/2018 REASON FOR CONSULTATION: Recurrent seizures. 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 He has a history of right frontal AVM surgery with left-sided weakness. He normally takes Keppra 2000 mg b.i.d. as well as Phenobarbital 64.8 mg b.i.d. and is also on Vimpat 50 mg b.i.d. He was hospitalized at [facility] for congestive heart failure and was recovering at [facility] for rehab. Apparently was on a lower dose of Keppra than he normally takes. Normally he takes 2000 mg b.i.d., but was getting 500 mg t.i.d. He began having seizures, was febrile as well in the ER. The patient has since been restored on his dose of Keppra 2000 mg b.i.d. and has not had any recurrent seizure activity. CURRENT MEDICATIONS: 1. K-Dur. 2. Senokot. 3. Coumadin 5 daily, 2.5 mg on Wednesday, Wednesday and Wednesday, 5 mg every day. 4. He is on phenobarbital 64.8 mg b.i.d. 5. He is on Keppra 2000 mg b.i.d. 6. Vimpat 50 mg b.i.d. 7. Trandate 200 mg b.i.d. 8. Lasix 40 mg daily. 9. Chlorhexidine. 10. Lipitor. NEUROLOGICAL EXAMINATION: VITAL SIGNS: His blood pressure is 166/91, pulse is 77, respiratory rate 16, temperature 98 degrees. HIGHER CORTICAL FUNCTION: He is alert and oriented x3. Speech is normal. Cranial nerves intact. Motor extremities had a left hemiparesis, which he states is old from his previous AVM. Reflexes are symmetric. A CT of the brain shows evidence of right frontal and parietal lobe encephalomalacia, which appears chronic. There is some calcification in the frontal lobe. This could be related to post-treatment changes versus localized AVM recurrence. No hemorrhage is identified. LABORATORY DATA: Phenobarbital level 27.3. PT 12, INR 1.2. White count 7500, hemoglobin 11.6, hematocrit 35%, platelet count 63,000. IMPRESSION: 1. Recurrent seizures probably due to subtherapeutic Keppra dose, which seems to have resolved with the current Keppra level being increased: 2. History of AVM by history. PLAN: The patient is stable for discharge at this time. His seizures are controlled. Continue current anticonvulsant levels. I feel an MRI of the brain would be helpful in further evaluating the patient. I do not feel this is urgent. However, I will be happy to see the patient in followup in my office in 2 weeks and we will obtain an MRI and MRA of the brain as an outpatient at that time. The patient is stable neurologically for discharge. Shan Mejia MD, PhD STACEY/hailey/[email or web address] , 01:42 PM , 01:51 PM
[2018-08-16 16:51] VITALS: BP 156/85; RESP 17; TEMP 98.2
[2018-08-16 17:31] VITALS: PULSE 94
== END 2018-08-16 19:04 | disposition home health service (06) ==
LOC: NEDA 13:28 → NEPD 13:28 → INTOOBSV 18:12 → NEPHCDU 19:04 → N03 23:47 → N04 08-14 23:12
PROVIDERS: ADMIT Hospitalist; ATTEND Hospitalist
DX: R94.31 Abnormal electrocardiogram [ECG] [EKG]; Z86.718 Personal history of other venous thrombosis and embolism; I25.2 Old myocardial infarction; Z91.14 Patient's other noncompliance with medication regimen; G93.89 Other specified disorders of brain; I11.0 Hypertensive heart disease with heart failure; I50.9 Heart failure, unspecified; I69.30 Unspecified sequelae of cerebral infarction; Z82.49 Family history of ischemic heart disease and other diseases of the circulatory system; D69.3 Immune thrombocytopenic purpura; G40.909 Epilepsy, unspecified, not intractable, without status epilepticus; Z79.01 Long term (current) use of anticoagulants